=== PATIENT | male | born 1995 | race Hispanic/Latino ===

== ENCOUNTER 2020-04-15 09:16 | Emergency (ER) | payer SELFPAY ==
[2020-04-15] MEDS ORDERED: NA CHLORIDE 0.9% 1,000 ML ONE (09:48)
--- NOTE | 2020-04-15 10:09 | RAD REPORT ---
EXAM DESCRIPTION: RAD - Abdomen 1 View (KUB) - 04/15/2020 9:38 am CLINICAL HISTORY: ABD PAIN COMPARISON: <Comparisons> FINDINGS: Bowel gas pattern is non-specific. No obstruction, free air or pneumatosis. No calculi suspected. Calcification along the left pelvic floor is believed to be a phlebolith. No significant bony findings IMPRESSION: No suspicion for a GI acute finding. No calculi confirmed. Calcification left pelvic floor is believed be a phlebolith.
[2020-04-15 10:25] LABS: Absolute Lymphocytes (CBC) 1.6 K/uL (0.7-4.9); Basophils % 0.3 % (0-1.3); Hematocrit 47.7 % (39.6-49.0); Lymphocytes % 16.4 % (15.3-44.8); MPV 9.5 fL (7.6-11.3)
[2020-04-15 10:39] LABS: Albumin 4.2 g/dL (3.4-5.0); Bilirubin Direct 0.2 mg/dL (0-0.2); Potassium 3.8 mmol/L (3.5-5.1)
--- NOTE | 2020-04-15 11:06 | EDPHYS ---
Physician Documentation [facility] Name: Anibal Jaffe Jr Age: 25 yrs Sex: Male : 1995 Arrival Date: 04/15/2020 Time: 09:18 Bed 19 Private MD: CHETAN Physician Mauro Turcios HPI: 04/15 09:50 This 25 yrs old Male presents to ER via Ambulatory with complaints of lizzy Abdominal Pain, Nausea/Vomiting/Diarrhea. 09:50 The patient presents to the emergency department with nausea, vomiting, abdominal pain, lizzy of the right upper quadrant, left upper quadrant, right lower quadrant and left lower quadrant. Onset: The symptoms/episode began/occurred 14 day(s) ago. Possible causes: unknown. The symptoms are aggravated by nothing. The symptoms are alleviated by nothing. Associated signs and symptoms: The patient has no apparent associated signs or symptoms. Severity of symptoms: At their worst the symptoms were mild moderate in the emergency department the symptoms are unchanged. The patient has not experienced similar symptoms in the past. Historical: - Allergies: 09:30 No Known Allergies; hb - Home Meds: 09:30 None [Active]; hb - PMHx: 09:30 None; hb - PSHx: 09:30 None; hb - Immunization history:: Adult Immunizations up to date. - Social history:: Smoking status: Patient reports the use of cigarette tobacco products, smokes one-half pack cigarettes per day. - Family history:: not pertinent. ROS: 09:50 Constitutional: Negative for fever, chills, and weight loss, Eyes: Negative for injury, lizzy pain, redness, and discharge, ENT: Negative for injury, pain, and discharge, Neck: Negative for injury, pain, and swelling, Cardiovascular: Negative for chest pain, palpitations, and edema, Respiratory: Negative for shortness of breath, cough, wheezing, and pleuritic chest pain, Back: Negative for injury and pain, : Negative for injury, bleeding, discharge, and swelling, MS/Extremity: Negative for injury and deformity, Skin: Negative for injury, rash, and discoloration, Neuro: Negative for headache, weakness, numbness, tingling, and seizure, Psych: Negative for depression, anxiety, suicide ideation, homicidal ideation, and hallucinations, Allergy/Immunology: Negative for hives, rash, and allergies, Endocrine: Negative for neck swelling, polydipsia, polyuria, polyphagia, and marked weight changes, Hematologic/Lymphatic: Negative for swollen nodes, abnormal bleeding, and unusual bruising. 09:50 Abdomen/GI: Positive for abdominal pain, nausea and vomiting, diarrhea, of the right upper quadrant, left upper quadrant, right lower quadrant and left lower quadrant. Exam: 09:50 Constitutional: This is a well developed, well nourished patient who is awake, alert, lizzy and in no acute distress. Head/Face: Normocephalic, atraumatic. Eyes: Pupils equal round and reactive to light, extra-ocular motions intact. Lids and lashes normal. Conjunctiva and sclera are non-icteric and not injected. Cornea within normal limits. Periorbital areas with no swelling, redness, or edema. ENT: Nares patent. No nasal discharge, no septal abnormalities noted. Tympanic membranes are normal and external auditory canals are clear. Oropharynx with no redness, swelling, or masses, exudates, or evidence of obstruction, uvula midline. Mucous membranes moist. Neck: Trachea midline, no thyromegaly or masses palpated, and no cervical lymphadenopathy. Supple, full range of motion without nuchal rigidity, or vertebral point tenderness. No Meningismus. Chest/axilla: Normal chest wall appearance and motion. Nontender with no deformity. No lesions are appreciated. Cardiovascular: Regular rate and rhythm with a normal S1 and S2. No gallops, murmurs, or rubs. Normal PMI, no JVD. No pulse deficits. Respiratory: Lungs have equal breath sounds bilaterally, clear to auscultation and percussion. No rales, rhonchi or wheezes noted. No increased work of breathing, no retractions or nasal flaring. Back: No spinal tenderness. No costovertebral tenderness. Full range of motion. Male : Normal genitalia with no discharge or lesions. Skin: Warm, dry with normal turgor. Normal color with no rashes, no lesions, and no evidence of cellulitis. MS/ Extremity: Pulses equal, no cyanosis. Neurovascular intact. Full, normal range of motion. Neuro: Awake and alert, GCS 15, oriented to person, place, time, and situation. Cranial nerves II-XII grossly intact. Motor strength 5/5 in all extremities. Sensory grossly intact. Cerebellar exam normal. Normal gait. Psych: Awake, alert, with orientation to person, place and time. Behavior, mood, and affect are within normal limits. 09:50 Abdomen/GI: Inspection: abdomen appears normal, Bowel sounds: normal, Palpation: mild abdominal tenderness, in all quadrants, Liver: is firm, Hernia: not appreciated. Vital Signs: 09:27 BP 142 / 94; Pulse 88; Resp 16; Temp 99(TE); Pulse Ox 98% on R/A; Weight 99.79 kg; hb Height 5 ft. 8 in. (172.72 cm); Pain 5/10; 10:00 BP 139 / 99; Pulse 78; Resp 18; Pulse Ox 100% ; ah 11:30 BP 145 / 99; Pulse 99; Resp 16; Pulse Ox 100% ; ah 12:00 BP 141 / 99; Pulse 74; Resp 18; Pulse Ox 99% ; ah 09:27 Body Mass Index 33.45 (99.79 kg, 172.72 cm) hb MDM: 09:22 Patient medically screened. [facility] 09:50 Data reviewed: vital signs, nurses notes, lab test result(s), radiologic studies. Data lizzy interpreted: screen tacker: rate is 88 beats/min, rhythm is regular, Pulse oximetry: on room air is 98 %. Test interpretation: by ED physician or midlevel provider: plain radiologic studies. Counseling: I had a detailed discussion with the patient and/or guardian regarding: the historical points, exam findings, and any diagnostic results supporting the discharge/admit diagnosis, lab results, radiology results, the need for outpatient follow up, for definitive care, a training instructor. 11:04 Differential diagnosis: Nonspecific abd pain, gastritis, viral gastroenteritis, lizzy gastroenteritis. ED course: pt improved, will treat and follow up. 04/15 09:23 Order name: Basic Metabolic Panel; Complete Time: 11:03 [facility] 04/15 09:23 Order name: CBC with Diff; Complete Time: 10: [facility] 04/15 09:23 Order name: Hepatic Function; Complete Time: 11: [facility] 04/15 09:23 Order name: Lipase; Complete Time: 11: [facility] 04/15 09:23 Order name: IV Saline Lock; Complete Time: 10: [facility] 04/15 09:23 Order name: Labs collected and sent; Complete Time: 10: [facility] 04/15 09:23 Order name: Abdomen 1 View (KUB) XRAY; Complete Time: 10: [facility] 04/15 11:05 Order name: PO challenge; Complete Time: 12: [facility] Administered Medications: 10: Drug: NS 0.9% 1000 ml Route: IV; Rate: 1 bolus; Site: left antecubital; ca1 12:06 Follow up: Response: No adverse reaction; IV Status: Completed infusion 12:04 Drug: Cipro 500 mg Route: PO; Disposition: 04/15/20 11:05 Discharged to Home. Impression: Abdominal tenderness, Vomiting, Diarrhea, unspecified. - Condition is Stable. - Discharge Instructions: Abdominal Pain, Adult, Food Choices to Help Relieve Diarrhea, Adult, Diarrhea, Adult, Nausea and Vomiting, Adult, Abdominal Pain, Adult, [id number], Diarrhea, Adult, [id number], Vomiting, Adult. - Prescriptions for Bentyl 20 mg Oral Tablet - take 1 tablet by ORAL route every 6 hours As needed; 20 tablet. Pepcid 20 mg Oral Tablet - take 1 tablet by ORAL route every 12 hours for 10 days; 20 tablet. Zofran 4 mg Oral Tablet - take 1 tablet by ORAL route every 12 hours As needed; 14 tablet. Cipro 500 mg Oral Tablet - take 1 tablet by ORAL route every 12 hours for 5 days; 10 tablet. - Medication Reconciliation Form, Thank You Letter, Antibiotic Education, Prescription Opioid Use form. - Follow up: Private Physician; When: 2 - 3 days; Reason: Recheck today's complaints, Continuance of care, Re-evaluation by your physician. Follow up: Luba Luis MD; When: 2 - 3 days; Reason: Recheck today's complaints, Re-evaluation by your physician. - Problem is new. - Symptoms have improved. Signatures: Dispatcher [employer] EDMauro Arvizu MD MD cha Baxter, Heather, RN RN Halima Guo RN SALO [facility] Nerissa Felipe RN RN Corrections: (The following items were deleted from the chart) 12:29 11:05 04/15/2020 11:05 Discharged to Home. Impression: Abdominal tenderness; Vomiting; ah Diarrhea, unspecified. Condition is Stable. Discharge Instructions: Abdominal Pain, Adult, Food Choices to Help Relieve Diarrhea, Adult, Diarrhea, Adult, Nausea and Vomiting, Adult, Abdominal Pain, Adult, Wrym-[id number], Diarrhea, Adult, Zrqz-[id number], Vomiting, Adult. Prescriptions for Bentyl 20 mg Oral Tablet - take 1 tablet by ORAL route every 6 hours As needed; 20 tablet, Pepcid 20 mg Oral Tablet - take 1 tablet by ORAL route every 12 hours for 10 days; 20 tablet, Zofran 4 mg Oral Tablet - take 1 tablet by ORAL route every 12 hours As needed; 14 tablet, Cipro 500 mg Oral Tablet - take 1 tablet by ORAL route every 12 hours for 7 days; 14 tablet. and Forms are Medication Reconciliation Form, Thank You Letter, Antibiotic Education, Prescription Opioid Use. Follow up: Private Physician; When: 2 - 3 days; Reason: Recheck today's complaints, Continuance of care, Re-evaluation by your physician. Follow up: Luba Luis; When: 2 - 3 days; Reason: Recheck today's complaints, Re-evaluation by your physician. Problem is new. Symptoms have improved. lizzy
--- NOTE | 2020-04-15 11:06 | ER ---
Nurse's Notes [facility] Name: Anibal Jaffe Jr Age: 25 yrs Sex: Male : 1995 Arrival Date: 04/15/2020 Time: 09:18 Bed 19 Private MD: Diagnosis: Abdominal tenderness;Vomiting;Diarrhea, unspecified Presentation: 04/15 09:27 Chief complaint: Lower abdominal pain, N/V/D, and cough x 1 week, itch rash on feet x 1 hb month. Coronavirus screen: Patient reports a cough. Patient denies shortness of breath or difficulty breathing. Patient denies measured and/or subjective temperature greater than 100.4F prior to today's visit. Patient denies travel on a cruise ship or to a country the [facility] [place] currently [place] as an affected area. Patient denies contact with known and/or suspected case of COVID-19. Proceed with normal triage. Ebola Screen: No symptoms or risks identified at this time. Initial Sepsis Screen: Does the patient meet any 2 criteria? No. Patient's initial sepsis screen is negative. Does the patient have a suspected source of infection? No. Patient's initial sepsis screen is negative. Risk Assessment: Do you want to hurt yourself or someone else? Patient reports no desire to harm self or others. Onset of symptoms was March 2020. 09:27 Method Of Arrival: Ambulatory 09:27 Acuity: WILDER 3 hb Historical: - Allergies: 09:30 No Known Allergies; hb - Home Meds: 09:30 None [Active]; hb - PMHx: 09:30 None; hb - PSHx: 09:30 None; hb - Immunization history:: Adult Immunizations up to date. - Social history:: Smoking status: Patient reports the use of cigarette tobacco products, smokes one-half pack cigarettes per day. - Family history:: not pertinent. Screenin:08 Abuse screen: Denies threats or abuse. Nutritional screening: No deficits noted. Tuberculosis screening: No symptoms or risk factors identified. Fall Risk None identified. Assessment: 09:40 General: Appears in no apparent distress. Behavior is calm, cooperative, appropriate for age. Pain: Complains of pain in right lower quadrant and left lower quadrant. Neuro: Level of Consciousness is awake, alert, obeys commands, Oriented to person, place, time, situation, Appropriate for age. Cardiovascular: Capillary refill < 3 seconds Patient's skin is warm and dry. Respiratory: Airway is patent Respiratory effort is even, unlabored, Respiratory pattern is regular, symmetrical. GI: Stools are reported to be loose, Last BM was April 15, 2020. Bowel sounds present X 4 quads. Abdomen is tender to palpation in right lower quadrant and left lower quadrant. : Denies burning with urination. Derm: Skin is intact, is healthy with good turgor. 10:40 Reassessment: Patient and/or family updated on plan of care and expected duration. Pain ah level reassessed. Patient is alert, oriented x 3, equal unlabored respirations, skin warm/dry/pink. No needs voiced at this time. No vomiting noted. 11:30 Reassessment: Patient and/or family updated on plan of care and expected duration. Pain ah level reassessed. Patient is alert, oriented x 3, equal unlabored respirations, skin warm/dry/pink. No needs voiced at this time. 12:15 Reassessment: Patient and/or family updated on plan of care and expected duration. Pain ah level reassessed. Discharge instructions given. Educated on prescriptions, voiced understanding. Vital Signs: 09:27 BP 142 / 94; Pulse 88; Resp 16; Temp 99(TE); Pulse Ox 98% on R/A; Weight 99.79 kg; hb Height 5 ft. 8 in. (172.72 cm); Pain 5/10; 10:00 BP 139 / 99; Pulse 78; Resp 18; Pulse Ox 100% ; ah 11:30 BP 145 / 99; Pulse 99; Resp 16; Pulse Ox 100% ; ah 12:00 BP 141 / 99; Pulse 74; Resp 18; Pulse Ox 99% ; ah 09:27 Body Mass Index 33.45 (99.79 kg, 172.72 cm) hb ED Course: 09:18 Patient arrived in ED. ag5 09:21 Mauro Turcios MD is Attending Physician. lizzy 09:29 Nerissa Felipe, RN is Primary Nurse. ah 09:30 Triage completed. hb 09:30 Arm band placed on. hb 09:38 Abdomen 1 View (KUB) XRAY In Process Unspecified. EDMS 10:26 Inserted saline lock: 20 gauge in left antecubital area, using aseptic technique. ca1 11:05 Luba Luis MD is Referral Physician. [facility] 12:08 Patient has correct armband on for positive identification. Placed in gown. Bed in low ah position. Call light in reach. Pulse ox on. NIBP on. 12:08 No provider procedures requiring assistance completed. 12:27 IV discontinued, intact, bleeding controlled, No redness/swelling at site. Pressure dressing applied. Administered Medications: 10: Drug: NS 0.9% 1000 ml Route: IV; Rate: 1 bolus; Site: left antecubital; ca1 12:06 Follow up: Response: No adverse reaction; IV Status: Completed infusion 12:04 Drug: Cipro 500 mg Route: PO; Outcome: 11:05 Discharge ordered by . [facility] 12: Discharged to home ambulatory. 12: Condition: good 12:26 Discharge instructions given to patient, Instructed on discharge instructions, follow up and referral plans. Demonstrated understanding of instructions, follow-up care, medications, Prescriptions given X 4. 12:29 Patient left the ED. Signatures: Dispatcher [employer] EDMauro Arvizu MD MD cha Baxter, Heather, RN RN Halima Guo RN RN Josiah Rose agNerissa Vargas, RN RN
[2020-04-15] MEDS ORDERED: CIPROFLOXACIN HCL 500 MG TAB ONE (12:12)
== END 2020-04-15 12:29 | disposition home or self-care (01) ==
LOC: ER 09:16
DX: R11.10 Vomiting, unspecified (principal); R19.7 Diarrhea, unspecified; F17.210 Nicotine dependence, cigarettes, uncomplicated
CPT/HCPCS: 36415; 74018; 80048; 80076; 83690; 85025; 96360; 96361; 99284; J7030